=== PATIENT | male | born 1960 | race Two or more races ===

== ENCOUNTER 2016-09-16 13:22 | Emergency (ER) | payer OTHER ==
[~2016-09-16] VITALS: Ht 172.7 cm; Wt 104.3 kg
[~2016-09-16 13:22] MED LIST: HYDR-4663
[2016-09-16 13:33] VITALS: BP 133/76
== END 2016-09-16 15:30 | disposition home or self-care (01) ==
LOC: ER 13:24
DX: S62.664A Nondisplaced fracture of distal phalanx of right ring finger, initial encounter for closed fracture (principal); I20.9 Angina pectoris, unspecified; W23.0XXA Caught, crushed, jammed, or pinched between moving objects, initial encounter; Y93.89 Activity, other specified; Y99.8 Other external cause status; Y92.89 Other specified places as the place of occurrence of the external cause
CPT/HCPCS: 29130; 73140

== ENCOUNTER 2021-12-08 10:58 | Inpatient (IN) | payer OTHER ==
[~2021-12-08] VITALS: Ht 170.2 cm; Wt 94.5 kg
[~2021-12-08 10:58] MED LIST changes: -HYDR-4663; +HYDR-4833
[2021-12-08 11:56] LABS: Albumin 3.6 g/dL (3.4-5.0); BUN/Creatinine Ratio 24.6; Potassium 4.2 mmol/L (3.5-5.1)
[2021-12-08 11:59] LABS: Bilirubin, Total 0.6 mg/dL (0.2-1.0); Total Protein 6.8 g/dL (6.4-8.2)
[2021-12-08 12:10] LABS: Basophils # (auto) 0 10 ^3/uL (0-0.2); Basophils % (auto) 0.3 % (0.0-2.0); Eosinophils # (auto) 0.1 10 ^3/uL (0-0.8); Hematocrit 42.4 % (41.0-53.0); Hemoglobin 14.1 g/dL (13.5-17.5); Lymphocytes # (auto) 2.5 10 ^3/uL (0.4-5.4); Lymphocytes % (auto) 34.1 % (10.0-50.0); Mean Corpuscular Hemoglobin 29.9 pg (28.0-32.0); Mean Corpuscular Hgb Conc. 33.3 g/dL (32.0-36.0); Mean Corpuscular Volume 89.8 fL (80.0-100.0); Monocytes # (auto) 0.4 10 ^3/uL (0-1.3); Monocytes % (auto) 5.1 % (0.0-12.0); Neutrophils # (auto) 4.3 10 ^3/uL (1.6-8.6); Neutrophils % (auto) 58.5 % (37.0-80.0); Nucleated Red Blood Cells % 0.1 %; Red Blood Cells 4.72 10^6/uL (4.5-5.90); Red Cell Distribution Width 14.1 % (11.8-14.3); White Blood Cell 7.4 10^3/uL (4.4-10.8)
[2021-12-08 13:21] LABS: INR 0.96 (0.9-1.15); Partial Thromboplastin Time 28.1 sec (24.6-33.4)
[2021-12-08] MEDS ORDERED: HYDROcodone-ACET 5/325MG TAB PO PRN (15:30)
[2021-12-08] MEDS ORDERED: NITROGLYCERIN 0.4 MG SL TAB SL PRN (15:30)
[2021-12-08] MEDS ORDERED: MORPHINE SULFATE INJ 2 MG/ml SYRG IV PRN ×2 (15:30)
[2021-12-08] MEDS ORDERED: ACETAMINOPHEN 325 MG TAB PO PRN (15:30)
[2021-12-08] MEDS ORDERED: CARV6.2551 PO (15:46)
[2021-12-08] MEDS ORDERED: ATOR-47 PO (15:46)
[2021-12-08] MEDS ORDERED: ASPI-325 PO (15:47)
[2021-12-08 16:38] LABS: Cholesterol 174 mg/dL (< 200); HDL Cholesterol 42 mg/dL (40-59); LDL Cholesterol 118 mg/dL (< 100); Triglycerides 166 mg/dL (< 150)
[2021-12-08 22:00] VITALS: BP 116/51
[2021-12-08] MEDS ORDERED: METF-370 PO (22:13)
[2021-12-08] MEDS ORDERED: MELO1TAB73 PO (22:13)
[2021-12-08] MEDS ORDERED: CLOP75TA70 PO (22:13)
[2021-12-08] MEDS ORDERED: ENAL5TAB10 PO (22:13)
[2021-12-08] MEDS ORDERED: CYAN100042 PO (22:13)
[2021-12-09 05:00] VITALS: BP 115/62
[2021-12-09 07:20] LABS: Albumin 3.5 g/dL (3.4-5.0); BUN/Creatinine Ratio 18.7; Potassium 4.3 mmol/L (3.5-5.1)
[2021-12-09 07:23] LABS: Bilirubin, Total 0.6 mg/dL (0.2-1.0); Total Protein 7.1 g/dL (6.4-8.2)
[2021-12-09 08:00] VITALS: BP 120/54
[2021-12-09 09:19] LABS: Basophils # (auto) 0.1 10 ^3/uL (0-0.2); Basophils % (auto) 1.2 % (0.0-2.0); Eosinophils # (auto) 0.2 10 ^3/uL (0-0.8); Eosinophils % (auto) 2.3 % (0.0-7.0); Hematocrit 42.4 % (41.0-53.0); Lymphocytes # (auto) 2.5 10 ^3/uL (0.4-5.4); Lymphocytes % (auto) 28.8 % (10.0-50.0); Mean Corpuscular Hemoglobin 29.8 pg (28.0-32.0); Mean Corpuscular Hgb Conc. 32.9 g/dL (32.0-36.0); Mean Corpuscular Volume 90.5 fL (80.0-100.0); Monocytes # (auto) 0.5 10 ^3/uL (0-1.3); Monocytes % (auto) 5.4 % (0.0-12.0); Neutrophils # (auto) 5.4 10 ^3/uL (1.6-8.6); Neutrophils % (auto) 62.3 % (37.0-80.0); Nucleated Red Blood Cells % 0.2 %; Red Blood Cells 4.69 10^6/uL (4.5-5.90); Red Cell Distribution Width 14.4 % (11.8-14.3); White Blood Cell 8.6 10^3/uL (4.4-10.8)
[2021-12-09] MEDS: ASPirin-EC 81 mg tab PO SCH (09:44)
[2021-12-09] MEDS: CARVEDILOL 3.125 MG TAB PO SCH ×2 (09:45→22:25)
[2021-12-09] MEDS: ENALAPRIL MALEATE 2.5 MG TAB PO SCH (09:45)
[2021-12-09] MEDS: ENOXAPARIN SOD 40 MG/0.4 ML SYRINGE SC SCH (09:46)
[2021-12-09] MEDS ORDERED: PATIENTS OWN MEDICATION (Atorvastatin Calcium 1 TAB) PO SCH (10:00)
[2021-12-09] MEDS ORDERED: PATIENTS OWN MEDICATION (Carvedilol 1 TAB) PO SCH (10:00)
[2021-12-09] MEDS ORDERED: PATIENTS OWN MEDICATION (Enalapril Maleate 1 TAB) PO SCH (10:00)
[2021-12-09] MEDS ORDERED: CLOPIDOGREL BISULFATE 75 MG TAB PO ONE (10:45)
[2021-12-09 12:00] VITALS: BP 109/55
[2021-12-09 16:00] VITALS: BP 101/50
[2021-12-09 22:00] VITALS: BP 116/69
[2021-12-09] MEDS ORDERED: ATORVASTATIN 20 MG TAB PO SCH (22:00)
[2021-12-10 05:00] VITALS: BP 122/67
[2021-12-10 08:00] VITALS: BP 124/72
[2021-12-10] MEDS: ASPirin-EC 81 mg tab PO SCH (09:35)
[2021-12-10] MEDS: ENOXAPARIN SOD 40 MG/0.4 ML SYRINGE SC SCH (09:35)
[2021-12-10] MEDS: CARVEDILOL 3.125 MG TAB PO SCH (09:36)
[2021-12-10] MEDS: ENALAPRIL MALEATE 2.5 MG TAB PO SCH (09:36)
[2021-12-10] MEDS ORDERED: CLOPIDOGREL BISULFATE 75 MG TAB PO SCH (10:00)
[2021-12-10 12:00] VITALS: BP 105/65
== END 2021-12-10 14:40 | disposition home or self-care (01) | DRG 311 ==
LOC: EDBD 10:58 → ER 10:58 → TELE 15:35 → TELE-EAST 21:19
PROVIDERS: ADMIT Registered Nurse; ATTEND Internal Medicine Geriatric Medicine
DX: I24.9 Acute ischemic heart disease, unspecified (principal); I10 Essential (primary) hypertension; E78.5 Hyperlipidemia, unspecified; R55 Syncope and collapse; I25.10 Atherosclerotic heart disease of native coronary artery without angina pectoris; Z20.822 Contact with and (suspected) exposure to COVID-19; E66.01 Morbid (severe) obesity due to excess calories; Z68.33 Body mass index [BMI] 33.0-33.9, adult; Z95.5 Presence of coronary angioplasty implant and graft; Z79.82 Long term (current) use of aspirin; Z86.73 Personal history of transient ischemic attack (TIA), and cerebral infarction without residual deficits; Z82.49 Family history of ischemic heart disease and other diseases of the circulatory system; I25.2 Old myocardial infarction
CPT/HCPCS: 36415; 70450; 70551; 71045; 80053; 80061; 83036; 83880; 84484; 85025; 85610; 85730; 93005; 93306; 93886; G0378